=== PATIENT | male | born 1935 ===

== ENCOUNTER → 2020-11-22 | Outpatient (CLI) | payer MEDICARE, OTHER | END | disposition home or self-care (01) | LOC: LAB 08:33 → LAB SHORT 08:33 | DX: D48.5 Neoplasm of uncertain behavior of skin (principal) | CPT/HCPCS: 88305 ==

== ENCOUNTER → 2021-05-02 | Outpatient (CLI) | payer MEDICARE, OTHER | END | disposition home or self-care (01) | LOC: LAB SHORT 11:03 | DX: R23.4 Changes in skin texture (principal); L08.9 Local infection of the skin and subcutaneous tissue, unspecified | CPT/HCPCS: 88305; 88341; 88342 ==

== ENCOUNTER 2023-07-07 11:42 | Inpatient (IN) | payer OTHER ==
[~2023-07-07] VITALS: Ht 182.9 cm; Wt 68.8 kg
[2023-07-07] MEDS ORDERED: Lactated Ringer's 1,000 ML IV ONE (12:20)
[2023-07-07 12:30] LABS: BASOPHILS ABSOLUTE AUTO 0.03 K/mm3 (0.00-0.23); BASOPHILS PERCENT AUTO 0 % (0-2); EOSINOPHILS ABSOLUTE AUTO 0.08 K/mm3 (0.00-0.68); EOSINOPHILS PERCENT AUTO 1 % (0-6); Hematocrit 37.9 % (37.0-53.0); Hemoglobin 12.2 g/dL (13.5-17.5); IMMATURE GRAN ABSOLUTE AUTO 0.06 K/mm3 (0.00-0.10); IMMATURE GRAN PERCENT AUTO 1 % (0-1); LYMPHOCYTES PERCENT AUTO 11 % (21-46); MONOCYTES ABSOLUTE AUTO 0.93 K/mm3 (0.16-1.47); MONOCYTES PERCENT AUTO 11 % (4-13); Mean Corpuscular HGB 30.7 pg (26.0-34.0); Mean Corpuscular HGB Conc 32.2 g/dL (31.5-36.5); Mean Corpuscular Volume 96 fL (80-100); Mean Platelet Volume 11.4 fL (9.1-12.4); NEUTROPHILS ABSOLUTE AUTO 6.68 K/mm3 (1.96-9.15); NEUTROPHILS PERCENT AUTO 76 % (41-73); Platelet Count 186 K/mm3 (150-400); RDW Coefficient Variation 13.4 % (11.7-14.2); RDW Standard Deviation 47.3 fL (35.1-46.3); Red Blood Cell Count 3.97 M/mm3 (4.30-5.90); White Blood Cell Count 8.78 K/mm3 (4.00-11.30)
[2023-07-07] MEDS ORDERED: LIDO700A20 TOP (12:40)
[2023-07-07] MEDS ORDERED: FLUTICASONE-SA1 EAC9 INH (12:41)
[2023-07-07] MEDS ORDERED: DICLOFENAC SOD100 GM TOP (12:41)
[2023-07-07] MEDS ORDERED: ALBU90OI INH (12:42)
[2023-07-07] MEDS ORDERED: MEGE40T (12:43)
[2023-07-07] MEDS ORDERED: Aspir 8181 MG PO (12:45)
[2023-07-07 12:53] LABS: Albumin, Blood 2.9 g/dL (3.4-5.0); Albumin/Globulin Ratio 0.8 (0.8-1.8); Bilirubin, Total 0.6 mg/dL (0.1-1.0); Bun/Creatinine Ratio 21.7 (12.0-20.0); Calcium, Blood 8.7 mg/dL (8.5-10.1); Creatinine, Blood 1.66 mg/dL (0.60-1.20); Globulin, Blood 3.8 g/dL (2.2-4.0); Magnesium, Blood 2.3 mg/dL (1.6-2.4); Potassium, Blood 3.9 mmol/L (3.5-5.5); Thyroid Stimulating Hormone 1.63 uIU/mL (0.360-4.800); Total Protein, Blood 6.7 g/dL (6.4-8.2)
[2023-07-07] MEDS ORDERED: NS 1,000 ML IV SCH (14:05)
[2023-07-07 14:28] LABS: Source, Urine Clean Catch
[2023-07-07 14:35] LABS: Appearance, Urine Clear (Clear); Bilirubin, Urine Neg (Neg); Blood, Urine 1+ (Neg); Glucose Qualitative, Urine Neg (Neg); Ketones, Urine Neg (Neg); Leukocyte Esterase, Urine Neg (Neg); Nitrite, Urine Neg (Neg); Protein, Urine 1+ (Neg); Urobilinogen, Urine NORM (Normal)
[2023-07-07 14:58] LABS: Color, Urine Pale Yellow (P-Yellow)
[2023-07-07 15:00] LABS: Bacteria Few /hpf; Squamous Epithelial Cells Few /hpf (Few); White Blood Cells, Urine 0-2 /hpf (0-5)
[2023-07-07] MEDS ORDERED: Azithromycin 250 MG Tab PO ONE (15:50)
[2023-07-07] MEDS ORDERED: CefTRIAXone Sodium 1,000 MG in NS 50 ML IV ONE (15:50)
[2023-07-07] MEDS ORDERED: Acetaminophen 500 MG Tab PO PRN (16:40)
[2023-07-07] MEDS ORDERED: Polyethylene Glycol 3350 17 gm PO PRN (16:45)
[2023-07-07] MEDS ORDERED: FLU VACC QS2023-24(6MOS UP)/PF 60 MCG/0.5 ML SYRINGE IM SCH (16:45)
[2023-07-07] MEDS ORDERED: Lactated Ringer's 1,000 ML IV SCH (16:45)
[2023-07-07 18:14] VITALS: BP 155/76
[2023-07-07] MEDS ORDERED: ACET500 PO (19:29)
[2023-07-07] MEDS ORDERED: Vitamin D1000 UNI1 PO (19:30)
[2023-07-07] MEDS ORDERED: Albuterol HFA200 ACT/6.7 GM INH INH PRN (20:35)
[2023-07-07] MEDS ORDERED: Mometasone/Formoterol MDI 200/5 mcg 13 GM INH SCH (20:35)
[2023-07-07] MEDS ORDERED: Lactobacil 2-S.Thermo-Bifido 1 1 Cap PO SCH (21:00)
[2023-07-07] MEDS ORDERED: Docusate Sodium/Senna 1 Tab PO SCH (21:00)
[2023-07-07] MEDS ORDERED: GuaiFENesin 600 MG TabCR PO SCH (21:00)
[2023-07-07 21:02] VITALS: BP 135/66
[2023-07-08 04:40] VITALS: BP 152/74
--- NOTE | 2023-07-08 04:54 | NUR ---
SHIFT SUMMARY PATIENT IS ALERT AND ORIENTED X3. PATIENT HAS HAD NO ACUTE EVENTS THIS SHIFT. PATIENT IS STILL ON 2L NC. PATIENT HAS BEEN CONTINENT AND USING URINAL WITH ASSISTANCE. PATIENT HAS NOT COMPLAINED OF SOB, NAUSEA, PAIN OR VOMITTING THIS SHIFT. PATIENT HAS BEEN RESTING MOST OF THE SHIFT. VITAL SIGNS REVIEWED. CALL LIGHT IN PLACE. IV FLUIDS INFUSING AT 50MLS/HR. BED IN LOCKED AND LOWEST POSITION.
[2023-07-08 05:01] LABS: Hematocrit 35.7 % (37.0-53.0); Hemoglobin 11.6 g/dL (13.5-17.5); Mean Corpuscular HGB 30.5 pg (26.0-34.0); Mean Corpuscular HGB Conc 32.5 g/dL (31.5-36.5); Mean Corpuscular Volume 94 fL (80-100); Mean Platelet Volume 11.5 fL (9.1-12.4); Platelet Count 167 K/mm3 (150-400); RDW Coefficient Variation 13.4 % (11.7-14.2); RDW Standard Deviation 46.4 fL (35.1-46.3); White Blood Cell Count 7.06 K/mm3 (4.00-11.30)
[2023-07-08 05:35] LABS: Albumin, Blood 2.8 g/dL (3.4-5.0); Anion Gap 5 mmol/L (6-16); Blood Urea Nitrogen 26 mg/dL (8-24); CO2, Blood 24 mmol/L (21-32); Calcium, Blood 8.3 mg/dL (8.5-10.1); Chloride, Blood 108 mmol/L (98-108); Creatinine, Blood 1.24 mg/dL (0.60-1.20); Glomerular Filtration Rate 56 (60-); Glucose, Blood 91 mg/dL (70-99); Magnesium, Blood 2.2 mg/dL (1.6-2.4); Phosphorus, Blood 2.7 mg/dL (2.5-4.9); Potassium, Blood 3.8 mmol/L (3.5-5.5); Sodium, Blood 137 mmol/L (136-145); Triglycerides 75 mg/dL (30-160)
[2023-07-08 07:50] VITALS: BP 136/75
[2023-07-08] MEDS ORDERED: Cholecalciferol 1000 Unit Tablet (=25MCG) PO SCH (09:00)
[2023-07-08] MEDS ORDERED: CefTRIAXone Sodium 1,000 MG in NS 50 ML IV SCH (09:00)
[2023-07-08] MEDS ORDERED: Heparin Sodium,Porcine 5,000 UNIT/0.5 ML SDV SC SCH (09:00)
[2023-07-08] MEDS ORDERED: Azithromycin 250 MG Tab PO SCH (09:00)
[2023-07-08] MEDS ORDERED: Multivitamins 1 Tab PO SCH (09:00)
--- NOTE | 2023-07-08 13:27 | NUR ---
OXYGEN] TRIALED ON RA. SAT 86% RA. RETURNED TO 1L N/C. 92%. CARE ONGOING.
[2023-07-08] MEDS ORDERED: Mometasone/Formoterol MDI 200/5 mcg 13 GM INH SCH (14:15)
[2023-07-08 16:49] VITALS: BP 146/66
[2023-07-08 19:46] VITALS: BP 148/75
[2023-07-09 03:49] VITALS: BP 140/66
--- NOTE | 2023-07-09 04:35 | NUR ---
SHIFT SUMMARY PATIENT IS ALERT AND ORIENTED. PATIENT HAS HAD NO ACUTE EVENTS THIS SHIFT. VITAL SIGNS REVIEWED. PATIENT HAS SET OFF BED ALARM MULTIPLE TIMES IN ATTEMPTS TO URINATE INTO URINAL, PATIENT UNSTEADY ON FEET AND NEEDS ASSISTANCE. PATIENT HAS HAD NO COMPLAINTS OF PAIN, NAUSEA, SOB OR VOMITTING THIS SHIFT. BED ALARM IS ON. BED IN LOWEST AND LOCKED POSITION. CALL LIGHT IN PLACE. WILL MONITOR UNTIL SHIFT CHANGE.
[2023-07-09 07:35] VITALS: BP 126/84
--- NOTE | 2023-07-09 08:33 | NUR ---
HOME CARE PT LIVES ALONE. EATS BREAKFAST AT [facility] DAILY AND THAT'S IT. PT COULD USE A REFERRAL TO [facility] FOR MEAL ASSIST AND CARE. FIONA REQUESTED A REFFERAL BACK YO [facility] FOR ASSIST. CARE ONGOING.
[2023-07-09] MEDS ORDERED: GUAI600T33 PO (15:56)
[2023-07-09] MEDS ORDERED: AZITHROMYCIN250 MG PO (15:58)
--- NOTE | 2023-07-09 17:09 | NUR ---
DISCHARGE PORTABLE OXYGEN DELIVERED TO PT. PT GRANDSON-CALLED FOR [facility] HOME. [facility] PT DISCHARGED. WARNED REPEATEDLY ABOUT NOT SMOKING WITH HIS OXYGEN ON. TALKED WITH FAMILY ABOUT NOT SMOKING WITH THE OXYGEN ON. CARE ONGOING.
== END 2023-07-09 17:10 | disposition home health service (06) | DRG 193 ==
LOC: ER 11:42 → MEDS 16:38
PROVIDERS: Emergency Medicine; ADMIT Internal Medicine
DX: J12.9 Viral pneumonia, unspecified (principal); J96.01 Acute respiratory failure with hypoxia; J44.0 Chronic obstructive pulmonary disease with (acute) lower respiratory infection; E44.0 Moderate protein-calorie malnutrition; Z68.1 Body mass index [BMI] 19.9 or less, adult; E87.20 Acidosis, unspecified; N18.30 Chronic kidney disease, stage 3 unspecified; R29.6 Repeated falls; I48.0 Paroxysmal atrial fibrillation; E78.5 Hyperlipidemia, unspecified; F17.210 Nicotine dependence, cigarettes, uncomplicated; I95.9 Hypotension, unspecified; I71.40 Abdominal aortic aneurysm, without rupture, unspecified; Z85.51 Personal history of malignant neoplasm of bladder; Z85.46 Personal history of malignant neoplasm of prostate; Z79.82 Long term (current) use of aspirin; Z79.51 Long term (current) use of inhaled steroids
CPT/HCPCS: 36415; 71046; 71260; 74177; 80053; 80069; 81001; 83605; 83690; 83735; 83880; 84145; 84443; 84478; 84484; 85025; 85027; 93005; 93010; 94640; 94664; 94760; 94761; 96361; 96365-59; 97116; 97161; 97530; 99285-25; A9270; J0696; J1644; J7030; J7120; Q9967

== ENCOUNTER 2024-11-29 23:05 | Inpatient (IN) | payer OTHER, MEDICARE ==
[~2024-11-29] VITALS: Ht 182.9 cm; Wt 48.9 kg
[~2024-11-29 23:05] MED LIST: ACET500 PO; ALBU90OI INH; AZITHROMYCIN250 MG PO; Aspir 8181 MG PO; DICLOFENAC SOD100 GM TOP; FLUTICASONE-SA1 EAC9 INH; GUAI600T33 PO; LIDO700A20 TOP; MEGE40T; Vitamin D1000 UNI1 PO
[2024-11-30] MEDS ORDERED: NS 1,000 ML IV SCH (01:10)
[2024-11-30 01:17] LABS: BASOPHILS ABSOLUTE AUTO 0.01 K/mm3 (0.00-0.23); BASOPHILS PERCENT AUTO 0 % (0-2); EOSINOPHILS ABSOLUTE AUTO 0.01 K/mm3 (0.00-0.68); EOSINOPHILS PERCENT AUTO 0 % (0-6); Hematocrit 34.6 % (37.0-53.0); Hemoglobin 11.3 g/dL (13.5-17.5); IMMATURE GRAN ABSOLUTE AUTO 0.15 K/mm3 (0.00-0.10); IMMATURE GRAN PERCENT AUTO 1 % (0-1); LYMPHOCYTES ABSOLUTE AUTO 0.40 K/mm3 (0.84-5.20); LYMPHOCYTES PERCENT AUTO 3 % (21-46); MONOCYTES ABSOLUTE AUTO 0.90 K/mm3 (0.16-1.47); MONOCYTES PERCENT AUTO 6 % (4-13); Mean Corpuscular HGB Conc 32.7 g/dL (31.5-36.5); Mean Corpuscular Volume 98 fL (80-100); NEUTROPHILS ABSOLUTE AUTO 12.78 K/mm3 (1.96-9.15); NEUTROPHILS PERCENT AUTO 90 % (41-73); NRBC ABSOLUTE 0.00 K/mm3 (0.00-0.02); NRBC Auto 0.0 /100 WBC (0.0-0.2); Platelet Count 179 K/mm3 (150-400); RDW Coefficient Variation 13.6 % (11.7-14.2); RDW Standard Deviation 48.8 fL (35.1-46.3)
[2024-11-30 01:36] LABS: Alanine Aminotransfer (ALT/SGP 21.0 U/L (12-78); Albumin, Blood 2.8 g/dL (3.4-5.0); Albumin/Globulin Ratio 0.7 (0.8-1.8); Anion Gap 6.0 mmol/L (3-11); Aspartate Aminotrans (AST/SGOT 19.0 U/L (12-37); Bilirubin, Total 0.4 mg/dL (0.1-1.0); Blood Urea Nitrogen 28.0 mg/dL (8-24); CO2, Blood 29.0 mmol/L (21-32); Calcium, Blood 8.5 mg/dL (8.5-10.1); Chloride, Blood 106.0 mmol/L (98-108); Creatinine, Blood 1.59 mg/dL (0.60-1.20); Globulin, Blood 3.8 g/dL (2.2-4.0); Glucose, Blood 129.0 mg/dL (70-99); Potassium, Blood 4.2 mmol/L (3.5-5.5); Sodium, Blood 137.0 mmol/L (136-145); Total Protein, Blood 6.6 g/dL (6.4-8.2)
[2024-11-30 02:31] LABS: Source, Urine Clean Catch
[2024-11-30 02:35] LABS: Bilirubin, Urine Neg (Neg); Glucose Qualitative, Urine Neg (Neg); Ketones, Urine Neg (Neg); Leukocyte Esterase, Urine 3+ (Neg); Protein, Urine 2+ (Neg); Specific Gravity, Urine 1.010 (1.003-1.022); Urobilinogen, Urine NORM (Normal)
[2024-11-30 02:37] LABS: Color, Urine Yellow (P-Yellow)
[2024-11-30] MEDS ORDERED: CefTRIAXone Sodium 1,000 MG in NS 50 ML IV ONE (02:40)
[2024-11-30 02:56] LABS: Red Blood Cells, Urine 0-2 /hpf (0-2)
[2024-11-30] MEDS ORDERED: Ondansetron HCl 2 MG / ML 2ML Vial IV PRN (03:55)
--- NOTE | 2024-11-30 06:34 | NUR ---
Arrival to unit Patient arrived to unit via gurney. Report received from Romana Gillespie, ER-RN. Disgruntled because he had just been cleaned up prior to arrival. Patient noted to have excoriations to buttock, penis, groin, and abdomen, scattered fibrin clots, and thickened skin to bilateral feet. Asked for permission to take photos of wounds, but patient straight up refused. Patient is not happy to be here and is even question why he's here in the first place. AO to self. Report received that patient was combative and, at one point, was trying to bite staff in ER. Arrived at 0608, slide transfer over to bed, warm blanket given, bed in lowest position w/ call light in reach, bed alarm on.
[2024-11-30 07:22] VITALS: BP 115/56
[2024-11-30] MEDS ORDERED: Enoxaparin 40 MG/0.4 ML SYR SC SCH (09:00)
[2024-11-30] MEDS ORDERED: Lactobacil 2-S.Thermo-Bifido 1 1 Cap PO SCH (09:00)
--- NOTE | 2024-11-30 16:01 | NUR ---
CODE STATUS: MET WITH PT AT BEDSIDE. HIS FRIEND COURTNEY WAS PRESENT, BRINGING PT A DONUT AND SOME JUICE. PT ATE THE DONUT AND VISITED WITH BOTH THIS RN AND COURTNEY. WE DISCUSSED CODE STATUS AND THE PATIENT STATES HE WOULD NOT WANT TO BE RESUSCITATED IF HE . PT VERBALIZES CHANGING CODE STATUS TO DNR. UNABLE TO REACH HOSPITALIST YET, WILL ATTEMPT TO CALL AGAIN.
[2024-11-30 16:51] VITALS: BP 136/61
--- NOTE | 2024-11-30 17:45 | NUR ---
SHIFT SUMMARY PT A&OX2, CONFUSED, VSS, BEDRIDDEN AT THIS TIME, ON 3L O2 NC, INCONT VOIDS, AND UNCOOPERATIVE W/ CARE MOST TIMES. PT ONLY COOPERATIVE W/ CARE WHILE PT'S FRIEND VISITS. THIS RN WAS ABLE TO TAKE PICTURES OF MOST WOUNDS AND PICTURES WERE PLACED IN CHART. THIS RN NOTIFIED . PT HAS HAD POOR PO INTAKE THIS SHIFT, DIETARY ATTEMPTED TO ROUND ON PT. PALLIATIVE CARE WAS CONSULTED AND CODE STATUS CHANGED. CALL LIGHT IN REACH AND BED ALARM ON FOR SAFETY.
[2024-11-30 19:25] VITALS: BP 105/64
[2024-11-30] MEDS ORDERED: CefTRIAXone Sodium 1,000 MG in NS 100 ML IV SCH (21:00)
--- NOTE | 2024-12-01 04:51 | NUR ---
SHIFT SUMMARY PT HERE FOR UTI AND FAILURE TO THRIVE. HE HAS BEEN AOX2-3 OVERNIGHT, RESTING IN BED COMFORTABLY. HE HAS BEEN CALM AND COOPERATIVE MOSTLY, HAVING A FEW INSTANCES OF UNCOOPERATIVENESS. HE HAS BEEN ON 3LNC FOR MOST OF NIGHT, W/ BASELINE OF 2L. PT TITRATED DOWN TO BASELINE. PT HAS BEEN BEDREST OVERNIGHT, AND DOES NOT CALL APPROPRIATELY, AND HE HAS BEEN IMPULSIVE. BED ALARM HAS BEEN ARMED. PT STEADY WHILE STANDING, BUT HAS DYSPNEA FROM THE WORK. PT HAS HAD NO COMPLAINTS OVERNIGHT. NO ACUTE EVENTS OVERNIGHT.
[2024-12-01 05:45] VITALS: BP 115/52
[2024-12-01 07:29] VITALS: BP 113/55
--- NOTE | 2024-12-01 10:41 | NUR ---
PALLIATIVE CARE EVALUATION MET WITH PT AT BEDSIDE AGAIN THIS MORNING ALONG WITH APS AND APD DENTAL ASSISTANT TEACHER. HOSPITAL FLEET SALES ASSOCIATE ALSO INVOLVED. THE PATIENT HAS BEEN LIVING ALONE AND THAT IS NO LONGER A VIABLE OPTION GIVEN HIS INABILITY TO CARE FOR HIMSELF. HE IS AN 89 YEAR OLD MALE WITH HISTORY OF PROSTATE CANCER, A-FIB, AAA, MEMORY IMPAIRMENT, AND CHRONIC KIDNEY DISEASE STAGE 3. PER [facility] LABELS, PT HAS SEVERE PROTEIN CALORIE MALNUTRITION, AND A BMI OF 14.6. HAS AN UNSTAGEABLE SACRAL WOUND. THE PT'S NEIGHBOR CALLED 911 FOR HIM, AND HE WAS FOUND "COVERED IN URINE AND FECES." THE PATIENT IS UNABLE TO AMBULATE DUE TO FATIGUE, WEAKNESS. HE IS ALSO NEWLY REQUIRING 02 SUPPORT VIA N/C. THIS PATIENT IS HOSPICE APPROPRIATE, AND AGREEABLE TO THIS PLAN WITH THE FOCUS ON COMFORT. HOSPITALIST IN AGREEMENT WITH PLAN. KPS 40% PPS 30% REQUIRES ASSIST IN 5/6 ADL'S COMORBIDITIES: PROTEIN ROBERT MAL, CKD STAGE 3 AND COPD
[2024-12-01] MEDS ORDERED: Morphine Sulfate 20 MG/1ML 1 ML Oral Syringe SL PRN (12:15)
[2024-12-01 16:03] VITALS: BP 115/68
--- NOTE | 2024-12-01 20:07 | NUR ---
SUMMARY- PT A/O X2-3, IMPULSIVE AT TIMES WHEN HE HAS TO VOID/BM. USED URINAL AND HAD URGE INCONT AT TIMES. HAD INCONT LG BM WELL. PT FEEDS SELF WITH SET UP AND ATE APPROX 50% OF MEALS, ENJOYS EATING. ESPECIALLY ICE CREAM. DENIED PAIN THIS AM. PALL INVOLVED AND PT BECAME COMFORT CARE. MEDICATED ONCE WITH OXY 5MG FOR C/O MOD BACK PAIN, SEEMINGLY EFFECTIVE AEB PT NAPPING. STANDS AT EDGE OF BED TO VOID, ADQ STRENGTH, UNSTEADY GAIT AND SEVERELY WEAK. PT STARTED USING CALL LIGHT AFTER MULT REMINDERS. PT TOOK OXYGEN OFF AND RN REAPPLIED WHEN PT SOB AFTER ACTIVITY. REPORTED OFF TO PARAG LONDONO RN
--- NOTE | 2024-12-02 06:29 | NUR ---
SHIFT SUMMARY PT HERE FOR ENCEPHALOPATHY. HE HAS BEEN AOX2-3, CALM AND COOPERATIVE. PT HAS ALSO BEEN IMPULSIVE, GETTING UP OOB TO URIRNATE W/O CALLING. BED ALARM HAS BEEN ARMED. PT IS COMFORT CARE. PT IS ON 2LNC, W/ NO COMPLAINTS OF SOB. PT HAS HAD PAIN IN BACK OVERNIGHT, BUT HAS REFUSED ROXANOL. REMINDED PT IF HE IS IN PAIN, MEDICATION CAN BE ADMINISTERED. PT VERBALIZED UNDERSTANDING. PT HAS BEEN CONTINENT OVERNIGHT. PT HAS HAD UNEVENTFUL NIGHT.
--- NOTE | 2024-12-02 16:36 | NUR ---
ASSESSED PATIENT THIS MORNING. DISCUSSED CASE WITH BSRN AND KNIT TUBING DYER. PATIENT IS REQUESTING ICE CREAM FREQUENTLY. HE WAS ALERT AND PLESANT.
--- NOTE | 2024-12-02 17:06 | NUR ---
SHIFT SUMMARY NO ACUTE CHANGES. REMAINS ON COMFORT CARE. 2 L/MIN VIA NC IN PLACE - PT BASELINE AND PT LIKES TO WEAR HIS O2. FREQUENT AND URGENT URINATION WITH LITTLE OUTPUT. PT WILL CONTINUE ANTIBIOTICS FOR UTI - SWITCHED TO ORAL ANTIBIOTICS TODAY. PT DENIES PAIN T/O SHIFT. ENJOYS HIS ICE CREAM. PT CURRENTLY RESTING IN BED WITH BED IN LOWEST POSITION AND CALL LIGHT WITHIN REACH. BED ALARM ON - PT DOES NOT USE CALL LIGHT. WILL HOLLER OUT OR ATTEMPT TO GET UP ON HIS OWN.
--- NOTE | 2024-12-03 00:40 | NUR ---
NURSES NOTE ASSUMING CARE OF PATIENT AT THIS TIME. HE IS AWAKE AND REQUESTING SOME ICE CREAM. IT WILL BE BROUGHT TO HIM. HE IS ORIENTED X3. MOIST COUGH IS PRESENT. BED ALARM IS SET AND CALL LIGHT IS WITHIN REACH. SHIFT REPORT HAS BEEN GIVEN. SAFETY PRECAUTIONS ARE BEING MAINTAINED.
--- NOTE | 2024-12-03 03:27 | NUR ---
SHIFT SUMMARY PATIENT IS ON COMFORT CARE. HE HAS SLEPT INTERMITTANTLY DURING THIS SHIFT. PATIENT HAS URINARY FREQUENCY. BED ALARM IS SET. CALL LIGHT IS WITHIN REACH. SAFETY PRECAUTIONS ARE BEING MAINTAINED.
--- NOTE | 2024-12-03 17:20 | NUR ---
SHIFT SUMMARY PT AOX3/4, SEMI COOPERATIVE/ARGUEMENTATIVE AT TIMES, ABLE TO MAKE NEEDS KNOWN. PT IS ON COMFORT CARE CURRENTLY. ON 2L O2 NC. HAS NOT COMPLAINED OF PAIN DURING SHIFT. MEDICATED FOR AGITATION EARLY IN SHIFT. END OF LIFE CATHETER ORDER IN, HAS NOT BEEN PLACED YET. BED ALARM YET. BED IN LOWEST POSITION, CALL LIGHT WITHIN REACH.
--- NOTE | 2024-12-04 05:19 | NUR ---
PT ALERT AND ORIENTED X3-4 DURING SHIFT. PATIENT IS A DNR AND ON COMFOR CARE. 2X ASSIST OUT OF BED. PATIENT ABLE TO USE URINAL. RN ATTEMPTED TO PUT IN MARTIN CATHETER PER ORDER BUT PATIENT REFUSED. RN EDUATED PATIET ON THE REASON FOR IT BUT PATIENT STILL DELCINES. BED IN LOCKED AND LOW POSITION WITH CALL LIGT WITHIN REACH.
--- NOTE | 2024-12-04 17:49 | NUR ---
SHIFT SUMMARY PT IS A/OX2-3, CONFUSION TO DATE/TIME AND CURRENT SITUATION AT TIMES. NO ACUTE CHANGES THROUGHOUT THIS SHIFT. PT UP SITTING ON THE EDGE OF THE BED FOR MUCH OF THIS SHIFT. USING URINAL INDEPENDENTLY AT BEDSIDE. PT CALLS APPROPRIATELY USING THE CALL LIGHT.
[2024-12-05] MEDS ORDERED: Morphine Sulfate 10 MG/ML 1MLSYR INH PRN (12:30)
--- NOTE | 2024-12-05 14:25 | NUR ---
PT WAS ASLEEP DRUING MY ROUNDS. APPEARED COMFORTABLE. DISCUSSED WITH BSRN
--- NOTE | 2024-12-05 16:59 | NUR ---
SHIFT SUMMARY PT IS A/OX2-3. NO ACUTE CHANGES THROUGHOUT THIS SHIFT. PT ASLEEP IN BED FOR MUCH OF THIS SHIFT. USING URINAL AT BEDSIDE INDEPENDENTLY. ON 2L NC FOR COMFORT. PT IS COOPERATIVE WITH CARE AND CALLS APPROPRIATELY USING THE CALL LIGHT.
--- NOTE | 2024-12-06 18:24 | NUR ---
PT PLEASANT AND TALKATIVE TODAY. PT CONTINUES ON 2L O2 FOR COMFORT. CONTINUES TO SIT UP AT BEDSIDE TO EAT. PENDING TRANSFER TO SNF NO OTHER NEW CONCERNS NOTED. BED IN LOW POSITION, CALL LITE IN REACH, CALLS APPROP
--- NOTE | 2024-12-07 06:35 | NUR ---
SUMMARY COOPERATIVE, MOVES SLOW BUT CAN BECOME EASY IRRITABLE. APPLIED AIR MATTRESS IN ADDITION TO COMFORT CARE. EASILY AROUSABLE WHEN ASLEEP. CONTINENT, OFTENLY AWAKEN THEN SITS ON EDGE OF BED TO PEE IN URINAL. HAD 1 FORMED BM LAST NIGHT.
[2024-12-07 07:27] VITALS: BP 115/54
[2024-12-07] MEDS ORDERED: MORP20L SL (09:22)
[2024-12-07] MEDS ORDERED: MORPHINE SULFATE INH (09:43)
--- NOTE | 2024-12-07 10:34 | NUR ---
1030- THIS RN CALLED [facility] AND GAVE REPORT TO SABINA RUBIO. ALL QUESTIONS ANSWERED.
--- NOTE | 2024-12-07 12:23 | NUR ---
1220- PT DC VIA TRANSPORT. PT LEFT WITH ALL BELONGING'S INCLUDING CANE. PT LEFT IN STABLE CONDITION ON 2L O2 W/PORTABLE TANK FROM HOSPITAL. TRANSPORT TO RETURN O2 TANK.
== END 2024-12-07 12:23 | DRG 871 ==
LOC: ER 23:05 → MEDS 11-30 05:09
PROVIDERS: Emergency Medicine; ADMIT Student in an Organized Health Care Education/Training Program
DX: A41.59 Other Gram-negative sepsis (principal); G92.8 Other toxic encephalopathy; G93.41 Metabolic encephalopathy; E44.0 Moderate protein-calorie malnutrition; N39.0 Urinary tract infection, site not specified; Z68.1 Body mass index [BMI] 19.9 or less, adult; N18.30 Chronic kidney disease, stage 3 unspecified; J44.9 Chronic obstructive pulmonary disease, unspecified; Z51.5 Encounter for palliative care; Z66 Do not resuscitate; E86.0 Dehydration; R65.20 Severe sepsis without septic shock; I48.0 Paroxysmal atrial fibrillation; Z88.8 Allergy status to other drugs, medicaments and biological substances; Z79.82 Long term (current) use of aspirin; Z79.51 Long term (current) use of inhaled steroids; Z85.46 Personal history of malignant neoplasm of prostate; Z90.79 Acquired absence of other genital organ(s); Z60.2 Problems related to living alone
CPT/HCPCS: 80053; 81001; 85025; 87077; 87086; 87186; 93005; 93010; 94762; 96365; 96372; 96374; 96376; 99285-25; A6590; A9270; G0378; J0696; J1650; J7030